=== PATIENT | male | born 1980 | race Caucasian/White ===

== ENCOUNTER 2020-08-09 07:39 | Emergency (ER) | payer BC ==
[2020-08-09] MEDS ORDERED: Boostrix 0.5 ML (Tdap) VIAL ONE (08:16)
== END 2020-08-09 08:28 | disposition home or self-care (01) ==
LOC: BURERS 07:39
DX: S80.261A Insect bite (nonvenomous), right knee, initial encounter (principal); W57.XXXA Bitten or stung by nonvenomous insect and other nonvenomous arthropods, initial encounter
CPT/HCPCS: 90471; 90715